=== PATIENT | female | born 1980 | race Caucasian/White ===

== ENCOUNTER 2018-07-12 19:16 | Emergency (ER) | payer OTHER ==
[2018-07-12 19:30] VITALS: BP 136/81
--- NOTE | 2018-07-12 20:32 | ED ---
Allergic Reaction/Systemic - HPI Summary HPI Summary: 37-year-old female presents with facial flushing today. She states after she had an IPA she developed the facial flushing. States she did have a similar reaction when she had soft foam many years ago and the results and shortness of breath and a plastic reaction. She states that the flushing does not go past her neck. She states she also had a melon today which she has had before. She' s never had this drink before. She does drink alcohol weekly ago. She denies any chest pain or shortness breath. She admits to tingling feeling in her throat. She states though she feels slightly anxious. Denies any bowel pain. No nausea or vomiting. No tongue swelling. She took 50 of Benadryl now feels better. The facial flushing has resolved. - History of Current Complaint Chief Complaint: EDAllergicReaction Time Seen by Provider: 07/12/18 20:17 Pain Intensity: 0 - Allergies/Home Medications Allergies/Adverse Reactions: Allergies Allergy/AdvReac Type Severity Reaction Status Date / Time Sulfa (Sulfonamide Allergy Rash Verified 07/12/18 19:31 Antibiotics) PMH/Surg Hx/FS Hx/Imm Hx Endocrine/Hematology History: Denies: Hx Anticoagulant Therapy Cardiovascular History: Denies: Hx Hypertension Infectious Disease History: No Infectious Disease History: Denies: Traveled Outside the [place] in Last 30 Days - Family History Known Family History: Negative: Diabetes - Social History Alcohol Use: Weekly Substance Use Type: Reports: None Smoking Status (MU): Never Smoked Tobacco Review of Systems Negative: Fever Positive: Sore Throat Negative: Chest Pain Negative: Shortness Of Breath Negative: Abdominal Pain Positive: Rash All Other Systems Reviewed And Are Negative: Yes Physical Exam Triage Information Reviewed: Yes Vital Signs On Initial Exam: Initial Vitals Temp Pulse Resp BP Pulse Ox 99.5 F 65 15 136/81 100 07/12/18 19:25 07/12/18 19:25 07/12/18 19:25 07/12/18 19:25 07/12/18 19:25 Vital Signs Reviewed: Yes Appearance: Positive: Well-Appearing Skin: Positive: Warm, Dry Head/Face: Positive: Normal Head/Face Inspection Eyes: Positive: Normal, EOMI, SAGAR, Conjunctiva Clear ENT: Positive: Normal ENT inspection, Pharynx normal, TMs normal Respiratory/Lung Sounds: Positive: Clear to Auscultation, Breath Sounds Present Cardiovascular: Positive: Normal, RRR Abdomen Description: Positive: Nontender, Soft Bowel Sounds: Positive: Present Musculoskeletal: Positive: Normal Neurological: Positive: Normal Psychiatric: Positive: Normal Diagnostics - Vital Signs Vital Signs Temp Pulse Resp BP Pulse Ox 07/12/18 19:25 99.5 F 65 15 136/81 100 - Laboratory Lab Statement: Any lab studies that have been ordered have been reviewed, and results considered in the medical decision making process. Allergic Reaction Course/Dx - Course Course Of Treatment: 37-year-old female presents with facial flushing today. She states after she had an IPA she developed the facial flushing. States she did have a similar reaction when she had soft foam many years ago and the results and shortness of breath and a plastic reaction. She states that the flushing does not go past her neck. She states she also had a melon today which she has had before. She's never had this drink before. She does drink alcohol weekly ago. She denies any chest pain or shortness breath. She admits to tingling feeling in her throat. She states though she feels slightly anxious. Denies any bowel pain. No nausea or vomiting. No tongue swelling. She took 50 of Benadryl now feels better. The facial flushing has resolved. on exam has no urticaria noted. pharynx normal. lungs CTA. discussed options with patient and decide just wants to continue bendaryl. patient understand and agrees with plan. - Diagnoses Differential Diagnosis/HQI/PQRI: Positive: Anaphylaxis, Local Allergic Reaction , Urticaria Provider Diagnoses: Urticaria Discharge - Sign-Out/Discharge Documenting (check all that apply): Patient Departure - Discharge Plan Condition: Good Disposition: HOME Patient Education Materials: Urticaria (ED) Referrals: [facility] [place] [facility] [Outside] Additional Instructions: Take Benadryl every 6 hours for next 24 hours Return to ED if shortness of breath, vomiting, abdominal pain, or if develop any new or worsening symptoms - Billing Disposition and Condition Condition: GOOD Disposition: Home
== END 2018-07-12 20:52 | disposition home or self-care (01) ==
LOC: ED 19:16
DX: L50.9 Urticaria, unspecified (principal); J02.9 Acute pharyngitis, unspecified; R21 Rash and other nonspecific skin eruption
CPT/HCPCS: 99281